=== PATIENT | male | born 1965 | race Caucasian/White ===

== ENCOUNTER 2018-05-11 10:49 | Day surgery (SDC) | payer OTHER ==
[2014-07-18 10:13] VITALS: BP 104/77
[~2018-05-11 10:49] MED LIST: LACTATED RINGERS 1,000 ML IV.SOLN IV ONE; PROPOFOL 200 MG/20 ML VIAL IV ONE
--- NOTE | 2018-05-12 09:15 | GI Report ---
REFERRING PHYSICIAN: Dr. Beth Gongora GEARMAN: Malvin Velazco MD PROCEDURE MEDICATION: Propofol as per anesthesia. INDICATIONS: Patient is a 53-year-old man who had a diagnosis 2 years ago of renal cell carcinoma and a high risk. He is referred for a colonoscopy. He denies any change in bowel habits or bleeding. PROCEDURE PERFORMED: Colonoscopy, biopsy, and polypectomy. PROCEDURE: An Olympus video colonoscope was advanced to the rectum. A few small diverticula were in the sigmoid colon. The colonoscope was advanced to the cecum. In the base of the cecum and in the proximal ascending colon, there were 2 polyps about 2 mm in size that were cold biopsy removed. We put them in the same cassette. The remaining part of the transverse colon and descending had no obvious intraluminal lesions noted. A few small diverticula were in the sigmoid colon. Retroflexion of the rectum was normal. Patient tolerated the procedure well. FINDINGS: 1. Two polyps removed from the cecum and proximal ascending colon. 2. A few diverticula. RECOMMENDATIONS: 1. Increase fiber in the diet. 2. Pending the pathology of the polyps, consider re-looking at his colon between 3 and 5 years. cc: Dr. Beth TEJADA
== END 2018-05-11 14:30 | disposition home or self-care (01) ==
LOC: OPSURG 10:49
PROVIDERS: ATTEND Internal Medicine Gastroenterology
DX: D12.2 Benign neoplasm of ascending colon (principal); D12.0 Benign neoplasm of cecum; K51.40 Inflammatory polyps of colon without complications; K57.30 Diverticulosis of large intestine without perforation or abscess without bleeding; C64.2 Malignant neoplasm of left kidney, except renal pelvis
CPT/HCPCS: 45380; J2704; J7120; S1016